=== PATIENT | female | born 1940 ===

== ENCOUNTER 2022-01-13 15:13 | Inpatient (IN) | payer MEDICARE, OTHER ==
[~2022-01-13] VITALS: Ht 304.8 cm; Wt 45.4 kg
[2022-01-13] MEDS ORDERED: IV NORMAL SALINE 1000 ML BAG IV ONE (15:30)
[2022-01-13 16:11] LABS: HEMATOCRIT 35.3 % (31.2-41.9); MEAN CORPUSCULAR HEMOGLOBIN 28.6 uug (24.7-32.8); MEAN CORPUSCULAR VOLUME 88.1 fL (75.5-95.3); PLATELET COUNT (AUTO) 325 K/uL (179-408)
[2022-01-13 16:34] LABS: *BILIRUBIN,URIN NEGATIVE (NEGATIVE); *BLOOD, URINE NEGATIVE (NEGATIVE); *CLARITY,URINE CLEAR (CLEAR); *COLOR,URINE YELLOW (YELLOW); *KETONES,URINE NEGATIVE (NEGATIVE); *UROBILINOGEN,URINE 0.2 E.U./dl (NORMAL); LEUKOCYTE ESTERASE ,URINE 1+ (NEGATIVE); NITRITE, URINE NEGATIVE (NEGATIVE); UGLUCOSE NEGATIVE (NEGATIVE)
[2022-01-13 17:13] LABS: CREATININE 0.9 mg/dL (0.6-1.3); POTASSIUM 3.9 mmol/L (3.5-5.1)
[2022-01-13 17:22] LABS: BILIRUBIN,DIRECT 0.2 mg/dL (0.0-0.2); BILIRUBIN,TOTAL 0.3 mg/dL (0.2-1.0); TOTAL PROTEIN, SERUM 6.8 g/dL (6.4-8.2)
[2022-01-13 21:29] LABS: BACTERIA,URINE 2 /HPF (NONE SEEN); RBC,URINE 0-3 /HPF (0-3); SQUAMOUS EPITHELIAL CELL,UR FEW /HPF (NONE SEEN)
[2022-01-13] MEDS ORDERED: MORPHINE SULFATE 2 MG/1 ML DISP.SYRIN IV PRN (22:45)
[2022-01-13] MEDS ORDERED: MAGNESIUM HYDROXIDE 30 ML LIQUID UDC PO PRN (22:45)
[2022-01-13] MEDS ORDERED: ACETAMINOPHEN 325 MG TABLET PO PRN (22:45)
[2022-01-13] MEDS ORDERED: ONDANSETRON 4 MG/2 ML VIAL IV PRN (22:45)
[2022-01-13] MEDS ORDERED: CEFTRIAXONE 1 G in IV DEXTROSE 5% 50 ML IV SCH (22:45)
[2022-01-13] MEDS ORDERED: NITROGLYCERIN 0.4 MG/TAB BOTTLE SL PRN (22:45)
[2022-01-13] MEDS ORDERED: hydrALAZINE HCL 20 MG/1 ML VIAL IV ONE (23:30)
[2022-01-13] MEDS ORDERED: ESCI-9 PO (23:36)
[2022-01-13] MEDS ORDERED: IPRA0.2S48 NEB (23:36)
[2022-01-13] MEDS ORDERED: FLUT1BLS6 IH (23:36)
[2022-01-13] MEDS ORDERED: MECL-159 PO (23:36)
[2022-01-13] MEDS ORDERED: RIZA10TA27 PO (23:36)
[2022-01-13] MEDS ORDERED: CHOL400T28 PO (23:36)
[2022-01-13] MEDS ORDERED: AMLO-212 PO (23:36)
[2022-01-13] MEDS ORDERED: CLON0.5T4 PO (23:36)
[2022-01-13] MEDS ORDERED: FERR325T23 PO (23:36)
[2022-01-13] MEDS ORDERED: ALBU6.7H9 INH (23:36)
[2022-01-13] MEDS ORDERED: LEVO125T8 PO (23:36)
[2022-01-13] MEDS ORDERED: CARV25TA PO (23:36)
[2022-01-13] MEDS ORDERED: hydrALAZINE HCL 20 MG/1 ML VIAL ONE (23:43)
[2022-01-14] MEDS: LACTULOSE 20 G/30 ML LIQUID UDC PO SCH ×5 (00:46→21:34)
[2022-01-14] MEDS: HYDROCODONE/APAP 5-325MG TABLET PO PRN ×3 (02:38→13:38)
[2022-01-14 04:30] VITALS: BP 131/83
[2022-01-14 05:24] LABS: MAGNESIUM 2.1 mg/dL (1.8-2.4); POTASSIUM 3.7 mmol/L (3.5-5.1)
[2022-01-14 05:33] LABS: HEMATOCRIT 36.3 % (31.2-41.9); MEAN CORPUSCULAR HEMOGLOBIN 29.3 uug (24.7-32.8); MEAN CORPUSCULAR VOLUME 87.3 fL (75.5-95.3); PLATELET COUNT (AUTO) 337 K/uL (179-408)
[2022-01-14] MEDS: PANTOPRAZOLE SODIUM 40 MG TABLET.DR PO SCH (06:34)
[2022-01-14] MEDS: ASPIRIN EC 81 MG TABLET.DR PO SCH (08:48)
[2022-01-14] MEDS: ENOXAPARIN SODIUM 40 MG/0.4 ML DISP.SYRIN SQ SCH (08:49)
[2022-01-14] MEDS ORDERED: IPRATROPIUM BROMIDE 0.5 MG/2.5 ML NEBU NEB PRN (11:00)
[2022-01-14] MEDS ORDERED: ALBUTEROL SULFATE 2.5 MG/3 ML NEBU NEB PRN (11:00)
[2022-01-14 11:50] VITALS: BP 168/92
[2022-01-14] MEDS: AMLODIPINE 5 MG TABLET PO SCH (12:21)
[2022-01-14] MEDS: CHOLECALCIFEROL 1,000 UNIT TABLET PO SCH (12:21)
[2022-01-14] MEDS: CARVEDILOL 25 MG TABLET PO SCH ×3 (12:22→21:33)
[2022-01-14] MEDS: LEVOTHYROXINE SODIUM 125 MCG TABLET PO SCH (12:25)
[2022-01-14] MEDS ORDERED: FLEET ENEMA 133 ML BOTTLE RC ONE (13:00)
[2022-01-14] MEDS ORDERED: BISACODYL 10 MG SUPP.RECT RC PRN (13:00)
[2022-01-14] MEDS: MIRALAX 17 GM POWD.PACK PO SCH (13:39)
[2022-01-14 20:00] VITALS: BP 149/82
[2022-01-14] MEDS ORDERED: CLONAZEPAM 0.5 MG TABLET PO SCH (21:00)
[2022-01-14] MEDS: TEMAZEPAM 7.5 MG CAPSULE PO SCH ×2 (21:00→21:33)
[2022-01-15] VITALS: BP 142/81
[2022-01-15] MEDS ORDERED: CEFTRIAXONE 1 G in IV DEXTROSE 5% 50 ML IV SCH (01:00)
[2022-01-15 04:00] VITALS: BP 147/68
[2022-01-15] MEDS: LEVOTHYROXINE SODIUM 125 MCG TABLET PO SCH (06:38)
[2022-01-15] MEDS: PANTOPRAZOLE SODIUM 40 MG TABLET.DR PO SCH (06:38)
[2022-01-15 07:04] LABS: BILIRUBIN,TOTAL 0.3 mg/dL (0.2-1.0); CREATININE 0.8 mg/dL (0.6-1.3); TOTAL PROTEIN, SERUM 6.6 g/dL (6.4-8.2)
[2022-01-15 07:07] LABS: MEAN CORPUSCULAR VOLUME 87.7 fL (75.5-95.3); PLATELET COUNT (AUTO) 313 K/uL (179-408)
[2022-01-15 07:19] LABS: THYROID STIMULATING HORMONE 2.979 mIU/mL (0.358-3.740)
[2022-01-15] MEDS: ASPIRIN EC 81 MG TABLET.DR PO SCH (08:10)
[2022-01-15] MEDS: CHOLECALCIFEROL 1,000 UNIT TABLET PO SCH (08:10)
[2022-01-15] MEDS: FERROUS SULFATE 325 MG TABEC PO SCH ×2 (08:10→08:29)
[2022-01-15] MEDS: AMLODIPINE 5 MG TABLET PO SCH (08:16)
[2022-01-15] MEDS: MIRALAX 17 GM POWD.PACK PO SCH (08:17)
[2022-01-15] MEDS: LACTULOSE 20 G/30 ML LIQUID UDC PO SCH ×3 (08:17→12:38)
[2022-01-15] MEDS: ENOXAPARIN SODIUM 40 MG/0.4 ML DISP.SYRIN SQ SCH (08:17)
[2022-01-15] MEDS: CARVEDILOL 25 MG TABLET PO SCH (08:17)
[2022-01-15] MEDS ORDERED: POTASSIUM CHLORIDE 20 MEQ TAB.PRT.SR PO ONE (09:00)
[2022-01-15] MEDS ORDERED: ESCITALOPRAM OXALATE 10 MG TABLET PO SCH (09:00)
[2022-01-15] MEDS ORDERED: NITR100C11 PO (10:09)
[2022-01-15] MEDS ORDERED: POTASSIUM CHLORIDE 10 MEQ TAB.PRT.SR PO ONE (11:00)
[2022-01-15 11:31] VITALS: BP 137/64
[2022-01-15] MEDS ORDERED: PHENAZOPYRIDINE HCL 100 MG TABLET PO SCH (12:00)
[2022-01-15 14:10] LABS: BILIRUBIN,DIRECT 0.1 mg/dL (0.0-0.2); BILIRUBIN,TOTAL 0.3 mg/dL (0.2-1.0); TOTAL PROTEIN, SERUM 6.8 g/dL (6.4-8.2)
[2022-01-15] MEDS ORDERED: LEVO500T90 PO ×2 (15:37→16:16)
[2022-01-15] MEDS ORDERED: PHEN-704 PO ×2 (15:37→16:16)
[2022-01-15 16:00] VITALS: BP 124/72
[2022-01-15] MEDS ORDERED: IOHEXOL 350 100 ML INFUS..BTL ONE (18:07)
== END 2022-01-15 17:45 | disposition home or self-care (01) | DRG 73 ==
LOC: ER 15:16 → TELE3 22:30
PROVIDERS: ADMIT Nurse Practitioner Family; ATTEND Nurse Practitioner Family
DX: G90.8 Other disorders of autonomic nervous system (principal); I21.4 Non-ST elevation (NSTEMI) myocardial infarction; E44.1 Mild protein-calorie malnutrition; N39.0 Urinary tract infection, site not specified; M85.80 Other specified disorders of bone density and structure, unspecified site; E88.09 Other disorders of plasma-protein metabolism, not elsewhere classified; I11.0 Hypertensive heart disease with heart failure; F03.90 Unspecified dementia, unspecified severity, without behavioral disturbance, psychotic disturbance, mood disturbance, and anxiety; K59.00 Constipation, unspecified; Z87.440 Personal history of urinary (tract) infections; Z87.891 Personal history of nicotine dependence; J44.9 Chronic obstructive pulmonary disease, unspecified; R53.1 Weakness; B96.89 Other specified bacterial agents as the cause of diseases classified elsewhere; Z20.822 Contact with and (suspected) exposure to COVID-19; I50.9 Heart failure, unspecified
CPT/HCPCS: 36415; 70450; 71045; 83605; 83690; 83735; 84100; 84443; 84484; 85025; 93005; 93307; 93880; A4663; G0378; J0360; J0696; J1650; J7040; Q9967